=== PATIENT | male | born 2000 | race Caucasian/White ===

== ENCOUNTER → 2020-05-21 10:40 | Outpatient (CLI) | payer OTHER, SELFPAY ==
[2020-05-21 11:01] LABS: Lipase 94 U/L (73-393)
== END ==
PROVIDERS: PCP Physician Assistant; Referring Provider Physician Assistant; Visit Provider Physician Assistant
DX: R11.2 Nausea with vomiting, unspecified (principal)
CPT/HCPCS: 83690

== ENCOUNTER 2021-02-02 01:42 | Emergency (ER) | payer OTHER, SELFPAY ==
[2021-02-02 01:43] VITALS: BP 152/83; PULSE 106; RESP 20; TEMP 36.8; O2SAT 99; BMI 26.6
--- NOTE | 2021-02-02 01:58 | RAD_ITS ---
STUDY: X-RAY - RIGHT TIBIA AND FIBULA REASON FOR EXAM: Male, 20 years old. Posttraumatic right lower leg pain TECHNIQUE: 2 view(s) of the tibia and fibula were obtained. COMPARISON: None. FINDINGS: Normal visualized distal femur. Normal patella. Normal tibia. Normal fibula. Normal visualized bones of the foot. Joints are in normal alignment. No periarticular degenerative or inflammatory change. No knee joint effusion. The soft tissue structures are unremarkable. RAD/Tibia & Fibula 2 Views IMPRESSION: Normal x-ray examination of the tibia and fibula. Electronically Signed: Erickson Mar MD at 2:22 EDT Tel , Service support ,
--- NOTE | 2021-02-02 01:58 | RAD_ITS ---
STUDY: X-RAY - RIGHT ANKLE REASON FOR EXAM: Male, 20 years old. Posttraumatic right ankle pain TECHNIQUE: 3 view(s) of the ankle. COMPARISON: None. FINDINGS: Normal visualized distal tibia and fibula. Normal medial and lateral malleoli. Normal tibiotalar articulation and ankle mortise. Normal visualized talus and calcaneus. The visualized subtalar, talonavicular, calcaneocuboid and tarsal articulations are normal. The soft tissue structures are unremarkable. RAD/Ankle min 3 Views IMPRESSION: Normal x-ray examination of the ankle. Electronically Signed: Erickson Mar MD at 2:22 EDT Tel , Service support ,
--- NOTE | 2021-02-02 01:59 | ED.VIS.LOWEX ---
HPI History of Present Illness Chief Complaint: Lower Extremity Injury Informant: patient Narrative Narrative: Patient presents admittedly high after smoking marijuana and drinking some alcohol, and states I should not have driven here saying that after he got his shower tonight, he thinks maybe he twisted his right ankle or something, initially saying that he is unsure if he is having pain on the right, the left, or both. He states that he knows it hurts to walk and stand. PFSH PFSH Medical History no medical history no medical history Home Medications NK 02/02/21 [History Last Taken Unknown] Allergy/AdvReac Type Severity Reaction Status Date / Time No Known Allergies Allergy Verified 02/02/21 01:45 Surgical History (Updated 02/02/21 @ 01:47 by Boone Eagle) H/O wisdom tooth extraction Status post tonsillectomy and adenoidectomy Social History (Updated 02/02/21 @ 02:[address] Jerad Clark MD) Smoking Status: Current every day smoker tobacco type: e-cigarettes substance use type: marijuana ROS ROS ED Constitutional Constitutional ED: Denies chills or fever(s) Musculoskeletal Musculoskeletal: Reports extremity pain; Denies neck pain Integumentary Denies Abrasions, rash or wounds Neurologic Neurologic: Denies paresthesias or weakness EXAM Physical Exam Const Vital Signs: 02/02/21 01:43 02/02/21 02:32 Temperature 98.3 F Temperature Source Oral Pulse Rate 106 H 106 H Respiratory Rate 20 H 20 H Blood Pressure 152/83 H 152/83 H Blood Pressure Mean 106 Pulse Ox 99 99 Oxygen Delivery Method Room Air Positive well nourished and well developed Constitutional Narrative: Clinically appears intoxicated and with bilateral conjunctival injection. General Appearance ED: well developed and NAD Neck full ROM and supple Back/Spine normal ROM and normal to inspection Extremity normal to inspection and full ROM Extremity Narrative: Mildly tender right distal fibula and medial malleolus, and proximal fibula. Mild swelling lateral malleolus. No deformities. Good plantarflexion and dorsiflexion. No tenderness in the foot including the base of the fifth metatarsal and toes. Full range of motion of the knee without effusion. Hips nontender full range of motion. Able to stand on his left lower extremity without any significant pain or difficulty. No bony tenderness left lower extremity. All compartments of the right lower leg are soft and nondistended. Pulses intact distally and strong and symmetric. Neuro oriented x3, no focal motor deficits and no sensory deficits noted Sensorium / Orientation: alert Psych mental status grossly normal and thought process normal Skin no wounds Skin Narrative: Intact. Rashes: no rashes MDM MDM MDM Narrative Medical decision making narrative: On my interpretation 3 view x-ray series of the right ankle is normal and 2 view x-ray series of the right tibia-fibula are normal. Patient is reassured given an Aircast stirrup for what is likely an ankle sprain, and he will be offered crutches if needed as well as anti-inflammatories. Radiography Diagnostic Testing: Clinical Impression(s) from Imaging Studies Ankle X-Ray 02/02/21 01:58 IMPRESSION: Normal x-ray examination of the ankle. Electronically Signed: Erickson Mar MD at 2:22 EDT Tel , Service support , Tibia/Fibula X-Ray 02/02/21 01:58 IMPRESSION: Normal x-ray examination of the tibia and fibula. Electronically Signed: Erickson Mar MD at 2:22 EDT Tel , Service support , Discharge Plan Triage Chief Complaint: Lower Extremity Injury ED Provider: Jerad Clark Dx/Rx/DC Orders Clinical Impression: Right ankle sprain Instructions: ED Ankle Sprain (Adult) Prescriptions: No Action NK RF: 0 Primary Care Provider: Beth Butt NP Referrals: Carlos Cerna DO [STAFF PHYSICIAN] - 10-14 Days if not better Beth Butt NP, BUSINESS SERVICES ADMINISTRATOR-C [Primary Care Provider] - Disposition Disposition: Home, Self Care Discharge Date/Time: 02/02/21 02:32
[2021-02-02] MEDS: Naproxen 250 MG Tablet 500 MG PO (02:26)
[2021-02-02 02:32] VITALS: BP 152/83; PULSE 106; RESP 20; O2SAT 99
== END 2021-02-02 02:32 | disposition home or self-care (01) ==
LOC: ED 02:29
PROVIDERS: Emergency Provider Emergency Medicine; PCP Physician Assistant
DX: S93.401A Sprain of unspecified ligament of right ankle, initial encounter (principal); X50.1XXA Overexertion from prolonged static or awkward postures, initial encounter; Y93.E1 Activity, personal bathing and showering; Y92.9 Unspecified place or not applicable; Y99.8 Other external cause status; F17.290 Nicotine dependence, other tobacco product, uncomplicated
CPT/HCPCS: 73590; 73610; 99283

== ENCOUNTER 2023-01-13 11:53 | Outpatient (RCR) | payer OTHER, SELFPAY ==
--- NOTE | 2023-01-27 10:21 | HP.PTEVAL ---
Patient's Visit Information Visit Information Visit Information: MATTHEW TIMMONS is a 22 year old M referred to Physical Therapy by DUANE CLARK with a diagnosis of TMJ. Date of Evaluation: 01/13/23 Physical Therapist: Nan Stanley DPT Visit Plan Frequency: 2x /Week Duration: 4 Weeks Plan: Spoke to Captain Waiter/Waitress- he is concerned about postural musculature and increased discomfort with regards to TMJ dysfunction Focus Manual to TMJ and surrounding musculature- postural musculature scapular strength/stabilization Subjective Subjective: Patient reports that he went to the dentist he went to the dentist- and they sent him to TMJ specialist- and they want to make him a new retainer- referred him to orthontics for invisaline- they told him his gums are to inflammed and they think something is more sinister going on. He fell down 5-6 years ago and blacked out and woke up but something did not feel right. Woke up his dad- he said he was fine- never took him anywhere. His dad saw him have a seizure for 10 min- the first few months after the left side of his body does not feel right. 6 months he saw a back specialist and they did not find anything. He does not feel like his symptoms have changed. He goes to the chiropractor if he is miserable- he goes every 3 months- he is the only one that makes him feel better. The last time he was at his primary care doctor was a year and a half ago. The pain comes through the back through the chest wall. He has a significant shorter arm left than the right since then. The pain in his back is between his shoulder blades- it does not radiate- the pain is dull and achy- sharp and shooting- Worst: 7/10 Agg: anything Best: epsom salt bath and stretching- girlfriend will rub his back out or crack his back. Eases: 5/10 Jaw pain is just in the TMJ area- and if does not wear his retainer he feels like its going to fall off. 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 He feels like a 65 year old man. He is left hand dominate. He struggle to be active due to pain. PMHx: overdosed on adderoll when he was 4 Meds: none Objective Objective: Posture: poor throughout tx session sitting in hard back chair- FH, RS- can correct with tactile cues but does not maintain Gait: no deviation noted Palpation: tender along paraspinals of the cervical spine, medial border of the scapula, scalenes, upper trap, levator insertion, SCM, masseter, greater auricular point zygomatic arch, medial/lateral pterygoids, under the mandible ROM: UE and cervical WFL with pain- TMJ- he has full open but he has no lateral movement Strength: Scapula: poor, UE: 4+/5 Sensation: WNL Goals Goal 1:: Patient will be I with HEP and progression Goal Time Frame: 4-6 Weeks Goal 2:: Patient will maintain proper posture t/o tx session to demo increased scap s/s Goal Time Frame: 4-6 Weeks Goal 3:: Patient will report 80% improvement Goal Time Frame: 4-6 Weeks Rehabilitation Potential Physical Therapy Diagnosis: Patient presents with hypomobility- he has decreased ROM, scapular strength/stabilization and muscular endurance leading to poor posture and increased pain with ADL's. Anticipated Interventions Patient/Client Instruction: Educate patient on: Benefits of Fitness Program Therapeutic Exercise to Include: Strength training, Endurance training, Agility training, Body mechanics, Postural training, Neuromotor development, Dynamic Lumbar Stabilization and Scapular Strength/Stabilization For the Purpose of:: To improve muscle performance and motor function Manual Therapy Techniques to Include: Trigger point massage, Mobilization, Functional dry needling and Soft tissue mobilization TENS: Yes Cryotherapy (ice pack, ice massage): Yes Thermo therapy (hot pack): Yes Ultrasound (thermal/non thermal): Yes Text: Thank you for the opportunity to evaluate your patient. For Medicare and Medicare HMO plans, please review the plan of care and approve it. It will need to be FAXED BACK to us at [phone] for Medicare purposes. For Medicare only, by signing this I certify the plan of care. Please let me know if there are questions or concerns regarding this plan of care. Physician Signature: Date:
--- NOTE | 2023-07-07 16:45 | HP.PT.NRP ---
Patient Information Patient Information: MATTHEW TIMMONS was seen in my office for initial evaluation on 01/13/23. The following Plan of Care was established for this patient: POC Established Initial Frequency: 2x /Week Initial Duration: 4 Weeks Anticipated Interventions Patient/Client Instruction: Educate patient on: Benefits of Fitness Program Therapeutic Exercise to Include: Strength training, Endurance training, Agility training, Body mechanics, Postural training, Neuromotor development, Dynamic Lumbar Stabilization and Scapular Strength/Stabilization For the Purpose of:: To improve muscle performance and motor function Manual Therapy Techniques to Include: Trigger point massage, Mobilization, Functional dry needling and Soft tissue mobilization TENS: Yes Cryotherapy (ice pack, ice massage): Yes Thermo therapy (hot pack): Yes Ultrasound (thermal/non thermal): Yes Last Seen Last Seen: This patient was last seen in our office . Pertinent comments regarding their Physical therapy will appear below: Patient has not attended PT in over 5 months- appropriate to be d/c At this point I will be discontinuing this patient from physical therapy. I would be happy to see this patient again in the future if found appropriate by the physician. Thank you! YUSUF AllenT
== END 2023-01-13 19:00 | disposition home or self-care (01) ==
LOC: PT 11:53
PROVIDERS: PCP Physician Assistant
DX: S09.93XD Unspecified injury of face, subsequent encounter (principal); M79.10 Myalgia, unspecified site
CPT/HCPCS: 97162

== ENCOUNTER 2024-02-09 12:30 | Outpatient (RCR) | payer OTHER, SELFPAY ==
--- NOTE | 2024-01-06 12:19 | HP.PTEVAL_ITS ---
Patient's Visit Information Visit Information Visit Information: MATTHEW TIMMONS is a 23 year old M referred to Physical Therapy by DUANE CLARK with a diagnosis of jaw and myofascial pain. Date of Evaluation: 01/06/24 Physical Therapist: KYRIE Abel Visit Plan Frequency: 2x /Week Duration: 4 Weeks Plan: 2X/ week for 4 weeks for neck stretches (levator, mid and upper and lower traps, including chin tucks), scapular strength, postural strength, neck extension strength, possible MT/US to B masseters muscles, traps/levator. If do modalities, do both strength and modalities. Subjective Subjective: Pt fell in the shower on his face...blacked out. Came too and did not know what to do. He has been to every Dr since then. He had a seizure the night that he fell and never had one before. He did not feel well after that. He has had X-rays and nothing is broken. He has been to multiple chiropractors. He went to the Dentist cause he has constant face (Both sides of his face points to lateral side) and back pain (mid back--cramping and locked up in his back). Pt was told that he had TMJ and got a retainer for it and then he went to the special education math teacher and told to stop using it and he teeth pain has gotten better. He feels that his face pain is nerve pain. He was prescribed and SSRI nerve and anxiety pain and that has helped. He can not lift a lot. He tries not moving a lot. He feels tight in his jaw and he is also tight in his upper back and shoulders and up into the neck. It does not hurt to chew. He had PT several years ago and they did more for his back. The middle of his back is only relieved with trigger point. Pain jaw pain: Pain Intensity (Out of 10): 5 neck pain: Pain Intensity (Out of 10): 7 mid back pain: Pain Intensity (Out of 10): 8 B shoulder pain: Pain Intensity (Out of 10): 7 Objective Objective: Pt is L handed: R 94 and L 100 Posture: Rounded shoulders, increased thoracic kyphosis, FW head UE AROM: WFL UE MMT: R shoulder flex 8 and L 7.7 R shoulder ABD 7.7 and L 7.1 R shoulder ER 7.3 and L 6.7 Palpation: tender B upper and mid trap, levator, masseter muscle B, and B Rhomboids C-spine AROM: Flexion 100%, EXT 50% (a little painful), ROT B 75% (tight), SB B 50% No poppoing and clicking with jaw opening but painful to touch B masseter muscles and along B jaw line (worse with the L than the R) Balance/Special Test Scores Oswestry Neck Score: 26 Goals Goal 1:: I HEP Goal Time Frame: 6-8 Weeks Goal 2:: Sit with upright posture during treatment sessions Goal Time Frame: 6-8 Weeks Goal 3:: Increase c-spine AROM (at the time of the eval: C-spine AROM: Flexion 100%, EXT 50% (a little painful), ROT B 75% (tight), SB B 50%) Goal Time Frame: 6-8 Weeks Goal 4:: Pt to report a 25% reduction in pain of the face, neck and thoracic pain Goal Time Frame: 6-8 Weeks Rehabilitation Potential Rehabilitation Potential: Good Anticipated Interventions Patient/Client Instruction: Educate patient on: Condition and Plan of Care For the Purpose of:: To decrease pain, To increase ROM, To improve nutrient delivery to tissue, To improve muscle performance and motor function, To improve ability to perform ADL's, To increase tolerance to activity/condition/position, To improve performance and independence with ADL's, To improve health of tissue, To decrease soft tissue restriction and To increase flexibility/ROM Therapeutic Exercise to Include: Strength training, Postural training, Flexibilty training, Neuromotor development, Passive ROM, Active ROM, Dynamic Lumbar Stabilization and Scapular Strength/Stabilization For the Purpose of:: To decrease pain, To decrease swelling/inflammation, To increase ROM, To improve nutrient delivery to tissue, To improve muscle performance and motor function, To improve ability to perform ADL's, To increase tolerance to activity/condition/position, To decrease level of supervision to perform tasks, To improve ability of physical actions for home/community/work/leisure, To improve gait and locomotor functions, To improve health of tissue, To decrease soft tissue restriction and To increase flexibility/ROM Manual Therapy Techniques to Include: Passive ROM and Soft tissue mobilization For the Purpose of:: To decrease pain, To increase ROM, To improve nutrient delivery to tissue, To increase oxygenation perfusion, To improve muscle performance and motor function, To improve ability to perform ADL's, To increase tolerance to activity/condition/position, To improve health of tissue, To decrease soft tissue restriction and To increase flexibility/ROM Ultrasound (thermal/non thermal): Yes For the Purpose of:: To decrease pain, To decrease swelling/inflammation, To increase ROM and To improve nutrient delivery to tissue Text: Thank you for the opportunity to evaluate your patient. For Medicare and Medicare HMO plans, please review the plan of care and approve it. It will need to be FAXED BACK to us at [phone] for Medicare purposes. For Medicare only, by signing this I certify the plan of care. Please let me know if there are questions or concerns regarding this plan of care. Physician Signature: Date:
--- NOTE | 2024-02-09 12:56 | HP.PTDCSUM_ITS ---
Discharge Summary D/C summary: It has been my pleasure to treat MATTHEW TIMMONS referred by DUANE CLARK, with the diagnosis of jaw and myofascial pain for a total of 10 visit(s). Discharge Date: 02/09/24 Please see the following information for a summary of their discharge status. Subjective Subjective: Pt reports no improvement with therapy and sometimes PT helps loosen him up but then throughout the day it gets worse. It is always temporary. It has been a week since he went to the chiropractor but he fells like he has to go back. He is not sure what the next step is. He feels that his back between the rib and the muscles is what bothers him and sometimes he feels that it restricts his breathing. He is not sure if he will join as a member. He was looking into massages but it is expensive. He is doing his HEP. He bought a massage gun off of [employer] but it is temporary. Pt reports that he might have a small improvement in mobility but no change in pain Pain jaw pain: Pain Intensity (Out of 10): 2 neck pain: Pain Intensity (Out of 10): 2 mid back pain: Pain Intensity (Out of 10): 5 B shoulder pain: Pain Intensity (Out of 10): 2 Overall Improvement % Improvement: 0 Objective Objective/Function: C-spine AROM: Flexion 100%, EXT 50% (a little tightness), ROT B 85% (tight), SB B 75%) Goals Goal 1:: I HEP Goal Progress: Goal Met Goal 2:: Sit with upright posture during treatment sessions Goal Progress: Progressing Goal 3:: Increase c-spine AROM (at the time of the eval: C-spine AROM: Flexion 100%, EXT 50% (a little painful), ROT B 75% (tight), SB B 50%) Goal 4:: Pt to report a 25% reduction in pain of the face, neck and thoracic pain Goal Progress: Not Progressing Plan Plan: NAYA PT back to as he reports no improvement D/C Information Discharge Comments: DC PT back to . d/c sentence: If there are questions or concerns regarding this patient's physical therapy, please feel free to call me at [phone]. Thank you for the referral of this patient. Sincerely, Tram Wong, MPT Balance/Gait/Functional tests Balance/Special Test Scores Oswestry Neck Score: 20 Improvement % Improvement: 0
== END 2024-02-09 19:00 | disposition home or self-care (01) ==
LOC: PT 12:30
PROVIDERS: PCP Physician Assistant
DX: S09.93XD Unspecified injury of face, subsequent encounter (principal); M79.10 Myalgia, unspecified site
CPT/HCPCS: 97110; 97140; 97162; 97530